=== PATIENT | female | born 1990 | race Hispanic/Latino ===

== ENCOUNTER 2016-11-24 13:11 | Emergency (ER) | payer OTHER ==
[2016-11-24 13:22] VITALS: BMI 38.6
[2016-11-24] MEDS ORDERED: Albuterol-Ipratrop 3 mg / 0.5 (3 ml) UD IH STA (13:53)
--- NOTE | 2016-11-24 15:09 | ED PDOC ---
Arrival/HPI - General Chief Complaint: ENT Problem Time Seen by Provider: 11/24/16 13:53 Historian: Patient - History of Present Illness Narrative History of Present Illness (Text): 11/24/16 15:19 Patient with past medical history of asthma, reports episode of dyspnea and wheezing earlier this morning prior to arrival, which has since resolved. Patient reports taking no medications prior to arrival, states that she recently moved to [place] from [place] and does not have a doctor at this time, hence why she is here in the emergency room because she has no asthma medications at home. Episode apparently precipitated by her seasonal allergies. Otherwise, (-) fever, (-) cough, (-) sputum production, (-) chest pain. Patient has no previous history of emergency department visits. Patient has no previous history of hospital admissions. Patient was never intubated in the past. PMD none Past Medical History - Provider Review Nursing Documentation Reviewed: Yes - Infectious Disease Hx of Infectious Diseases: None - Cardiac Hx Cardiac Disorders: No - Pulmonary Hx Respiratory Disorders: Yes Hx Asthma: Yes - Neurological Hx Neurological Disorder: No - HEENT Hx HEENT Disorder: No - Renal Hx Renal Disorder: No - Endocrine/Metabolic Hx Endocrine Disorders: No - Hematological/Oncological Hx Blood Disorders: No - Integumentary Hx Dermatological Disorder: No - Musculoskeletal/Rheumatological Hx Musculoskeletal Disorders: No - Gastrointestinal Hx Gastrointestinal Disorders: No - Genitourinary/Gynecological Hx Genitourinary Disorders: No - Psychiatric Hx Psychophysiologic Disorder: Yes Hx Depression: Yes Hx Substance Use: No - Anesthesia Hx Anesthesia: No Family/Social History - Physician Review Nursing Documentation Reviewed: Yes Family/Social History: No Known Family HX Smoking Status: Light Smoker < 10 Cigarettes Daily Hx Alcohol Use: No Hx Substance Use: No Allergies/Home Meds Allergies/Adverse Reactions: Allergies raw vegetable Allergy (Verified 11/24/16 13:22) ITCHING Review of Systems - Review of Systems Constitutional: Normal. absent: Fatigue, Weight Change, Fevers ENT: Normal, Rhinorrhea (Due to seasonal allergies), Sinus Congestion (Due to seasonal allergies) Respiratory: Normal, Wheezing (Related to her history of asthma). absent: SOB, Cough, Sputum Cardiovascular: Normal. absent: Chest Pain, Palpitations, Edema Musculoskeletal: Normal. absent: Arthralgias, Back Pain Skin: Normal. absent: Rash, Pruritis, Skin Lesions Physical Exam - Physical Exam Narrative Physical Exam (Text): 11/24/16 15:21 GENERAL APPEARANCE: Patient is awake, alert, oriented x 3, in no acute respiratory distress. Patient speaking in full sentences, breathing is easy and unlabored. SKIN: Warm, dry; (-) cyanosis. EYES: (-) conjunctival pallor. ENMT: Mucous membranes moist. Airway patent: (-) stridor. Pharynx: (-) swelling, (-) erythema. NECK: (-) tenderness, (-) stiffness, (-) lymphadenopathy. CHEST AND RESPIRATORY: (-) wheezing; (-) rales, (-) rhonchi, (-) rub; breath sounds equal bilaterally. HEART AND CARDIOVASCULAR: (-) irregularity; (-) murmur, (-) gallop. ABDOMEN AND GI: Soft; (-) tenderness. EXTREMITIES: (-) deformity, (-) edema. NEURO AND PSYCH: Mental status as above; (-) focal findings. Vital Signs Temp Pulse Resp BP Pulse Ox 11/24/16 13:26 97.7 F 75 18 109/76 97 Medical Decision Making ED Course and Treatment: 11/24/16 15:22 26 yo F with past medical history of asthma, presents to emergency room for concern for possible wheezing, she was wheezing earlier this morning. Patient given albuterol neb. On reevaluation, the patient reports improvement of her symptoms, denies any shortness of breath, dyspnea, chest pain, fever, cough. On exam, patient is resting comfortably in bed in no acute respiratory distress, no accessory muscle use, speaking in full sentences. Lungs are clear to auscultation with no wheezing, rhonchi, rales. Based on history and exam, plan will be for outpatient follow-up with the clinic. Prescription provided. Patient states she fully agrees with and understands discharge instructions. States that she agrees with the plan and disposition. Verbalized and repeated discharge instructions and plan. I have given the patient opportunity to ask any additional questions. Follow up with the clinic in 1-2 days without fail. Advised to take medication as prescribed. Return to the emergency room at any time for any new or worsening symptoms. - Medication Orders Current Medication Orders: Discontinued Medications Albuterol/Ipratropium (Duoneb 3 Mg/0.5 Mg (3 Ml) Ud) 3 ml IH STAT STA Stop: 11/24/16 13:54 Last Admin: 11/24/16 14:03 Dose: 3 ml Disposition/Present on Arrival - Present on Arrival Any Indicators Present on Arrival: No History of DVT/PE: No History of Uncontrolled Diabetes: No Urinary Catheter: No History of Decub. Ulcer: No History Surgical Site Infection Following: None - Disposition Have Diagnosis and Disposition been Completed?: Yes Diagnosis: Asthma Disposition: HOME/ ROUTINE Disposition Time: 14:30 Patient Plan: Discharge Patient Problems: Current Active Problems Problem Status Onset Asthma Acute Condition: GOOD Discharge Instructions (ExitCare): Asthma (ED) Print Language: YORUBA Additional Instructions: Thank you for letting us take care of you today. You were treated for asthma. The emergency medical care you received today was directed at your acute symptoms. If you were prescribed any medication, please fill it and take as directed. It may take several days for your symptoms to resolve. Return to the Emergency Department if your symptoms worsen, do not improve, or if you have any other problems. Please contact your doctor in 2 days for re-evaluation and follow up / or call one of the physicians/clinics you have been referred to that are listed on the Patient Visit Information form that is included in your discharge packet. Bring any paperwork you were given at discharge with you along with any medications you are taking to your follow up visit. Our treatment cannot replace ongoing medical care by a primary care provider (PCP) outside of the emergency department. Thank you for allowing the [facility] team to be part of your care today. Prescriptions: Albuterol HFA [Ventolin HFA 90 mcg/actuation (8 g)] 2 puff IH [id number] #1 puff Albuterol 0.083% [Albuterol Sulfate 3 Ml] 3 ml IH Q4 #100 neb Nebulizer [Aeroeclipse] 1 each MC PRN PRN #1 each PRN Reason: Shortness Of Breath [place] [facility] [place] [facility] [place] Follow up with primary Forms: WORK NOTE
[2016-11-24 15:25] VITALS: BP 121/82; PULSE 74; RESP 19; TEMP 97.5; O2SAT 100
== END 2016-11-24 15:26 | disposition home or self-care (01) ==
LOC: ED 13:11
DX: J45.909 Unspecified asthma, uncomplicated (principal); Z72.0 Tobacco use

== ENCOUNTER 2016-12-14 04:40 | Emergency (ER) | payer OTHER, MEDICAID ==
[2016-12-14 04:44] VITALS: BMI 39.8
--- NOTE | 2016-12-14 05:20 | ED PDOC ---
Arrival/HPI - General Chief Complaint: Psychiatric Evaluation Time Seen by Provider: 12/14/16 05:17 Historian: Patient - History of Present Illness Narrative History of Present Illness (Text): 12/14/16 05:17 Paulette Tobias is a 26 year old female, whose past medical history includes asthma, who presents to the Emergency department complaining of depression. Patient states she has been feeling depressed recently and notes she has been experiencing suicidal ideation but denies any plan. Patient denies any homicidal ideation, fever, chills, chest pain, shortness of breath, nausea, vomiting, diarrhea, urinary symptoms, back pain, neck pain, headache, dizziness , or any other complaints. Symptom Onset: Gradual Symptom Course: Unchanged Activities at Onset: Rest, Light Context: Home Past Medical History - Provider Review Nursing Documentation Reviewed: Yes - Infectious Disease Hx of Infectious Diseases: None - Cardiac Hx Cardiac Disorders: No - Pulmonary Hx Respiratory Disorders: Yes Hx Asthma: Yes - Neurological Hx Neurological Disorder: No - HEENT Hx HEENT Disorder: No - Renal Hx Renal Disorder: No - Endocrine/Metabolic Hx Endocrine Disorders: No - Hematological/Oncological Hx Blood Disorders: No - Integumentary Hx Dermatological Disorder: No - Musculoskeletal/Rheumatological Hx Musculoskeletal Disorders: No - Gastrointestinal Hx Gastrointestinal Disorders: No - Genitourinary/Gynecological Hx Genitourinary Disorders: No - Psychiatric Hx Psychophysiologic Disorder: Yes Hx Depression: Yes Hx Substance Use: No - Anesthesia Hx Anesthesia: No Hx Anesthesia Reactions: No Hx Malignant Hyperthermia: No Family/Social History - Physician Review Nursing Documentation Reviewed: Yes Family/Social History: No Known Family HX Smoking Status: Light Smoker < 10 Cigarettes Daily Hx Alcohol Use: No Hx Substance Use: No Allergies/Home Meds Allergies/Adverse Reactions: Allergies raw vegetable Allergy (Verified 12/14/16 04:49) ITCHING Home Medications: Home Meds Medication Instructions Recorded Confirmed No Known Home Med 12/14/16 12/14/16 Review of Systems - Physician Review All systems were reviewed & negative as marked: Yes - Review of Systems Constitutional: Normal. absent: Fevers Eyes: Normal ENT: Normal Respiratory: Normal. absent: SOB, Cough Cardiovascular: Normal. absent: Chest Pain Gastrointestinal: Normal. absent: Abdominal Pain, Diarrhea, Nausea, Vomiting Genitourinary Female: Normal. absent: Dysuria, Frequency, Hematuria, Urine Output Changes Musculoskeletal: Normal. absent: Back Pain, Neck Pain Skin: Normal. absent: Rash Neurological: Normal. absent: Headache, Dizziness Endocrine: Normal Hemo/Lymphatic: Normal Psychiatric: Depression, Suicidal Ideation Physical Exam Vital Signs Reviewed: Yes Vital Signs Temp Pulse Resp BP Pulse Ox 12/14/16 05:05 98.0 F 75 18 124/83 99 Temperature: Afebrile Blood Pressure: Normal Pulse: Regular Respiratory Rate: Normal Appearance: Positive for: Well-Appearing, Non-Toxic, Comfortable Pain Distress: None Mental Status: Positive for: Alert and Oriented X 3 - Systems Exam Head: Present: Atraumatic, Normocephalic Pupils: Present: PERRL Extroacular Muscles: Present: EOMI Conjunctiva: Present: Normal Mouth: Present: Moist Mucous Membranes Neck: Present: Normal Range of Motion Respiratory/Chest: Present: Clear to Auscultation, Good Air Exchange. No: Respiratory Distress, Accessory Muscle Use Cardiovascular: Present: Regular Rate and Rhythm, Normal S1, S2. No: Murmurs Abdomen: Present: Normal Bowel Sounds. No: Tenderness, Distention, Peritoneal Signs Back: Present: Normal Inspection Upper Extremity: Present: Normal Inspection. No: Cyanosis, Edema Lower Extremity: Present: Normal Inspection. No: Edema Neurological: Present: GCS=15, CN II-XII Intact, Speech Normal Skin: Present: Warm, Dry, Normal Color. No: Rashes Psychiatric: Present: Alert, Oriented x 3, Normal Insight, Normal Concentration. No: Normal Affect (Flat affect) Medical Decision Making ED Course and Treatment: 12/14/16 05:17 Impression: 26 year old female complaining of depression and suicidal ideation. Plan: -- EKG -- Chest X-ray -- Labs, alcohol level -- Urinalysis, urine drug screen -- Reassess and disposition Progress Notes: Reviewed EKG, NSR at 74 bpm. Sinus arrhythmia. No acute changes. 12/14/16 07:[address] Pitts, pending medical clearance PES evaluation, re- assessment, and final disposition. - RAD Interpretation Radiology Orders: 12/14/16 05:19 CHEST PORTABLE [RAD] Stat - EKG Interpretation Interpreted by ED Physician: Yes Type: 12 lead EKG - Scribe Statement The provider has reviewed the documentation as recorded by the Scribzoltan Rust All medical record entries made by the Scribe were at my direction and personally dictated by me. I have reviewed the chart and agree that the record accurately reflects my personal performance of the history, physical exam, medical decision making, and the department course for this patient. I have also personally directed, reviewed, and agree with the discharge instructions and disposition. Disposition/Present on Arrival - Present on Arrival Any Indicators Present on Arrival: No History of DVT/PE: No History of Uncontrolled Diabetes: No Urinary Catheter: No History of Decub. Ulcer: No History Surgical Site Infection Following: None - Disposition Have Diagnosis and Disposition been Completed?: No Diagnosis: Depression Disposition Time: 07:00 Condition: STABLE
[2016-12-14 06:19] LABS: ADD MANUAL DIFF? NO
[2016-12-14 06:38] LABS: BASO # 0.02 K/mm3 (0.0-2.0); BASO % 0.2 % (0.0-3.0); EOS # 0.2 (0.0-0.7); EOS % 2.2 % (1.5-5.0); GRAN % 76.1 % (50.0-68.0); HEMATOCRIT 38.4 % (36.0-48.0); LYMPH # 1.7 (1.2-3.4); LYMPH % 15.9 % (22.0-35.0); MEAN CELL VOLUME 95.3 fL (80.0-105.0); MEAN CORPUSCULAR HGB CONC 33.6 g/dl (31.0-37.0); MEAN PLATELET VOLUME 10.8 fl (7.0-11.0); MONO # 0.6 (0.1-0.6); MONO % 5.6 % (1.0-6.0); PLATELET COUNT 230 10^3/uL (120.0-450.0); RED CELL DISTRIBUTION WIDTH 12.6 % (11.5-14.5); WHITE BLOOD COUNT 10.9 10^3/ul (4.5-11.0)
[2016-12-14 06:39] LABS: URINE BILIRUBIN NEGATIVE (NEGATIVE); URINE BLOOD MODERATE (NEGATIVE); URINE GLUCOSE (UA) NEGATIVE (NEGATIVE); URINE KETONE NEGATIVE (NEGATIVE); URINE LEUKOCYTE ESTERASE SMALL Leu/uL (NEGATIVE); URINE PROTEIN 30 mg/dL (<30 mg/dL); URINE UROBILINOGEN 0.2 E.U./dL (<1 E.U./dL)
[2016-12-14 06:40] LABS: URINE APPEARANCE CLEAR (CLEAR)
[2016-12-14 06:42] LABS: ALB/GLOB RATIO 1.4 (1.1-1.8); ALKALINE PHOSPHATASE 73 U/L (38-133); ALT/SGPT 52 U/L (7-56); AST/SGOT 26 U/L (15-39); BILIRUBIN,TOTAL 0.4 mg/dL (0.2-1.3); BLOOD UREA NITROGEN 14 mg/dL (7-21); CALCIUM 9.2 mg/dL (8.4-10.5); CARBON DIOXIDE 25 mmol/L (21-33); CHLORIDE 106 mmol/L (98-107); GFR AFRICAN-AMERICAN > 60; GLUCOSE,RANDOM 93 mg/dL (70-110); POTASSIUM 3.6 mmol/L (3.6-5.0); SODIUM 138 mmol/L (132-148); TOTAL PROTEIN 6.7 g/dL (5.8-8.3)
[2016-12-14 06:44] LABS: URINE BACTERIA TRACE (NEG); URINE RBC 20 - 25 /hpf (0-2)
--- NOTE | 2016-12-14 07:20 | ED PDOC ---
Physical Exam Vital Signs Reviewed: Yes Vital Signs Temp Pulse Resp BP Pulse Ox 12/14/16 08:20 98 F 78 16 109/70 99 12/14/16 05:05 98.0 F 75 18 124/83 99 Temperature: Afebrile Blood Pressure: Normal Pulse: Regular Respiratory Rate: Normal Appearance: Positive for: Well-Appearing, Non-Toxic, Comfortable Pain Distress: None Mental Status: Positive for: Alert and Oriented X 3 Medical Decision Making ED Course and Treatment: 12/14/16 07:00 Case signed out to me from overnight by Dr. Casiano, pending medical clearance, PES evaluation and disposition. The patient is a 26 year old female who presented to the emergency department earlier this morning for evaluation of depression with suicidal ideation. On examination the patient is pleasant, cooperative, conversive, not agitated. On reevaluation, the patient is resting comfortably, awaiting PES evaluation. 12/14/16 08:20 Chest X-ray: As read by me, shows no active disease. Patient medical cleared for PES evaluation. PES paged. 12/14/16 10:13 Patient seen and evaluated by PES (Bridgett), who has evaluated patient, consulted with psychiatry, and based on current exam reports that she is cleared for discharge from mental health standpoint with mental health follow-up given. On re-evaluation by me, the patient denies any suicidal ideation at this time. Patient is pleasant, conversing, alert and oriented. Patient denies any chest pain, shortness of breath, headache or other complaints at this time. Patient's lungs are clear on auscultation. She states she is comfortable with the plan to be discharged home and she states she is in a safe living situation. Patient states she will follow up with mental health like directed. 12/14/16 15:17 - Lab Interpretations Lab Results: 12/14/16 06:17 12/14/16 06:17 Lab Results 12/14/16 06:17: Urine HCG, Qual Negative 12/14/16 06:17: Urine Opiates Screen Negative, Urine Methadone Screen Negative, Ur Barbiturates Screen Negative, Ur Phencyclidine Scrn Negative, Ur Amphetamines Screen Negative, U Benzodiazepines Scrn Negative, U Oth Cocaine Metabols Negative, U Cannabinoids Screen Positive H 12/14/16 06:17: Alcohol, Quantitative < 10 12/14/16 06:17: Salicylates < 1 L, Acetaminophen < 10.0 L 12/14/16 06:17: Sodium 138, Potassium 3.6, Chloride 106, Carbon Dioxide 25, Anion Gap 11, BUN 14, Creatinine 0.7, Est GFR ( Amer) > 60, Est GFR (Non- Af Amer) > 60, Random Glucose 93, Calcium 9.2, Total Bilirubin 0.4, AST 26, ALT 52, Alkaline Phosphatase 73, Total Protein 6.7, Albumin 3.8, Globulin 2.8, Albumin/Globulin Ratio 1.4 12/14/16 06:17: Urine Color yellow, Urine Appearance Clear, Urine pH 6.0, Ur Specific [place] 1.015, Urine Protein 30 H, Urine Glucose (UA) Negative, Urine Ketones Negative, Urine Blood Moderate H, Urine Nitrate Negative, Urine Bilirubin Negative, Urine Urobilinogen 0.2, Ur Leukocyte Esterase Small H, Urine RBC 20 - 25, Urine WBC 5 - 10, Ur Epithelial Cells 10 - 12, Urine Bacteria Trace 12/14/16 06:17: WBC 10.9, RBC 4.03, Hgb 12.9, Hct 38.4, MCV 95.3, MCH 32.0, MCHC 33.6, RDW 12.6, Plt Count 230, MPV 10.8, Gran % 76.1 H, Lymph % (Auto) 15.9 L, [place] % (Auto) 5.6, Eos % (Auto) 2.2, Baso % (Auto) 0.2, Gran # 8.30 H, Lymph # 1.7, [place] # 0.6, Eos # 0.2, Baso # 0.02 I have reviewed the lab results: Yes - RAD Interpretation Radiology Orders: 12/14/16 05:19 CHEST PORTABLE [RAD] Stat - Scribe Statement The provider has reviewed the documentation as recorded by the Scribzoltan Roca Provider Scribe Attestation: All medical record entries made by the Scribe were at my direction and personally dictated by me. I have reviewed the chart and agree that the record accurately reflects my personal performance of the history, physical exam, medical decision making, and the department course for this patient. I have also personally directed, reviewed, and agree with the discharge instructions and disposition. Disposition/Present on Arrival - Present on Arrival Any Indicators Present on Arrival: No History of DVT/PE: No History of Uncontrolled Diabetes: No Urinary Catheter: No History of Decub. Ulcer: No History Surgical Site Infection Following: None - Disposition Have Diagnosis and Disposition been Completed?: Yes Diagnosis: Depression Disposition: HOME/ ROUTINE Disposition Time: 10:13 Patient Plan: Discharge Condition: GOOD Discharge Instructions (ExitCare): Depression (ED) Additional Instructions: Follow-up as instructed by mental health practitioner. For any headaches, any chest pain, any shortness of breath, any abdominal pain, any rash, any numbness or weakness, any suicidal thoughts, any persistence or worsening of any symptoms, get rechecked. Follow-up with your doctors as directed.
[2016-12-14 09:11] VITALS: TEMP 98
--- NOTE | 2016-12-14 10:26 | RAD ---
HISTORY: Medical clearance. Portable study 06:55. COMPARISON: No prior. FINDINGS: LUNGS: No active pulmonary disease. PLEURA: No significant pleural effusion identified, no pneumothorax apparent. CARDIOVASCULAR: Normal. OSSEOUS STRUCTURES: No significant abnormalities. VISUALIZED UPPER ABDOMEN: Normal. OTHER FINDINGS: None. IMPRESSION: No active disease.
--- NOTE | 2016-12-14 10:40 | CARD ---
APPROVED REPORT EKG Measurement Heart [id number] <Conclusion> Normal sinus rhythm WNL
[2016-12-14 11:08] VITALS: BP 112/77; PULSE 80; RESP 18; O2SAT 98
== END 2016-12-14 11:10 | disposition home or self-care (01) ==
LOC: ED 04:40
DX: F32.9 Major depressive disorder, single episode, unspecified (principal)

== ENCOUNTER 2017-01-16 13:40 | Emergency (ER) | payer MEDICAID, OTHER ==
[2017-01-16 13:40] VITALS: BMI 39.8
--- NOTE | 2017-01-16 13:57 | ED PDOC ---
Arrival/HPI - General Chief Complaint: Psychiatric Evaluation Time Seen by Provider: 01/16/17 13:45 Historian: Patient - History of Present Illness Narrative History of Present Illness (Text): 01/16/17 13:56 26yo female with history of Depression biba for psych evaluation. Patient states she told her roommate that she "will take the easy way out" during an argument and the roommate called EMS. States she did not mean it, but only said it in anger. She denies HI, hallucination, drug use, somatic complaint. Past Medical History - Provider Review Nursing Documentation Reviewed: Yes - Infectious Disease Hx of Infectious Diseases: None - Cardiac Hx Cardiac Disorders: No Hx Hypertension: No - Pulmonary Hx Tuberculosis: No - Neurological HX Cerebrovascular Accident: No Hx Seizures: No - HEENT Hx HEENT Disorder: No - Renal Hx Renal Disorder: No - Endocrine/Metabolic Hx Endocrine Disorders: No - Hematological/Oncological Hx Cancer: No - Integumentary Hx Dermatological Disorder: No - Musculoskeletal/Rheumatological Hx Musculoskeletal Disorders: No - Gastrointestinal Hx Gastrointestinal Disorders: No - Genitourinary/Gynecological Hx Sexually Transmitted Diseases: No - Psychiatric Hx Psychophysiologic Disorder: Yes Hx Anxiety: Yes Hx Depression: Yes Hx Substance Use: No - Anesthesia Hx Anesthesia: No Family/Social History - Physician Review Nursing Documentation Reviewed: Yes Family/Social History: Unknown Family HX Smoking Status: Light Smoker < 10 Cigarettes Daily Hx Alcohol Use: No Hx Substance Use: No Allergies/Home Meds Allergies/Adverse Reactions: Allergies raw vegetable Allergy (Verified 01/16/17 13:50) ITCHING Home Medications: Home Meds Medication Instructions Recorded Confirmed Gabapentin [Neurontin] 100 mg PO BID 01/16/17 01/16/17 Sertraline [Zoloft] 50 mg PO DAILY 01/16/17 01/16/17 Review of Systems - Physician Review All systems were reviewed & negative as marked: Yes - Review of Systems Constitutional: Normal Eyes: Normal ENT: Normal Respiratory: Normal Cardiovascular: Normal Gastrointestinal: Normal Genitourinary Female: Normal Musculoskeletal: Normal Skin: Normal Neurological: Normal Endocrine: Normal Hemo/Lymphatic: Normal Psychiatric: Depression, Suicidal Ideation Physical Exam Vital Signs Reviewed: Yes Vital Signs Temp Pulse Resp BP Pulse Ox 01/16/17 17:03 87 20 128/77 100 01/16/17 13:58 98.9 F 99 H 20 130/79 98 Temperature: Afebrile Blood Pressure: Normal Pulse: Regular Respiratory Rate: Normal Appearance: Positive for: Well-Appearing, Non-Toxic, Comfortable Pain Distress: None Mental Status: Positive for: Alert and Oriented X 3 - Systems Exam Head: Present: Atraumatic, Normocephalic Pupils: Present: PERRL Extroacular Muscles: Present: EOMI Conjunctiva: Present: Normal Mouth: Present: Moist Mucous Membranes Neck: Present: Normal Range of Motion Respiratory/Chest: Present: Clear to Auscultation, Good Air Exchange. No: Respiratory Distress, Accessory Muscle Use Cardiovascular: Present: Regular Rate and Rhythm, Normal S1, S2. No: Murmurs Abdomen: Present: Normal Bowel Sounds. No: Tenderness, Distention, Peritoneal Signs Back: Present: Normal Inspection Upper Extremity: Present: Normal Inspection. No: Cyanosis, Edema Lower Extremity: Present: Normal Inspection. No: Edema Neurological: Present: GCS=15, CN II-XII Intact, Speech Normal Skin: Present: Warm, Dry, Normal Color. No: Rashes Psychiatric: Present: Alert, Oriented x 3, Normal Insight, Normal Concentration Medical Decision Making ED Course and Treatment: 01/16/17 19:24 Pt;s lab was unremarkable. High protein was noted in the UA. On further questioning pt notes that she has been on protein diet. States she takes protein shakes 3times a day. this could be the cause of the high protein in the UA. She was advised to stop the protein diet and f/u with her PMD. She was medically cleared for psych evaluation and was seen by PES tsering Lov[place], jamilah DC with the psychiatrist and offered patient admission. States that pt declined admission and signed out AMA. - Lab Interpretations Lab Results: 01/16/17 14:21 01/16/17 14:21 Lab Results 01/16/17 14:21: Alcohol, Quantitative < 10 01/16/17 14:21: Salicylates < 1 L, Acetaminophen < 10.0 L 01/16/17 14:21: Sodium 139, Potassium 3.9, Chloride 105, Carbon Dioxide 23, Anion Gap 15, BUN 13, Creatinine 0.6, Est GFR ( Amer) > 60, Est GFR (Non- Af Amer) > 60, Random Glucose 96, Calcium 9.5, Total Bilirubin 1.1, AST 33, ALT 59 H, Alkaline Phosphatase 75, Total Protein 7.5, Albumin 4.4, Globulin 3.1, Albumin/Globulin Ratio 1.4 01/16/17 14:21: WBC 9.7, RBC 4.26, Hgb 13.7, Hct 40.5, MCV 95.1, MCH 32.2, MCHC 33.8, RDW 12.8, Plt Count 280, MPV 10.4, Gran % 75.1 H, Lymph % (Auto) 15.2 L, [place] % (Auto) 6.7 H, Eos % (Auto) 2.7, Baso % (Auto) 0.3, Gran # 7.29 H, Lymph # 1.5, [place] # 0.7 H, Eos # 0.3, Baso # 0.03 01/16/17 14:20: Urine Opiates Screen Negative, Urine Methadone Screen Negative, Ur Barbiturates Screen Negative, Ur Phencyclidine Scrn Negative, Ur Amphetamines Screen Negative, U Benzodiazepines Scrn Negative, U Oth Cocaine Metabols Negative, U Cannabinoids Screen Positive H 01/16/17 14:20: Urine Color Yellow, Urine Appearance Sl cloudy, Urine pH 6.0, Ur Specific [place] >= 1.030, Urine Protein >=300 H, Urine Glucose (UA) Negative , Urine Ketones Trace H, Urine Blood Moderate H, Urine Nitrate Negative, Urine Bilirubin Small H, Urine Urobilinogen 1.0 H, Ur Leukocyte Esterase Trace H, Urine RBC 0 - 2, Urine WBC 10 - 15, Ur Epithelial Cells 4 - 5, Urine Bacteria Mod, Coarse Granular Casts Trace H Disposition/Present on Arrival - Present on Arrival Any Indicators Present on Arrival: No History of DVT/PE: No History of Uncontrolled Diabetes: No Urinary Catheter: No History of Decub. Ulcer: No History Surgical Site Infection Following: None - Disposition Have Diagnosis and Disposition been Completed?: Yes Diagnosis: Depression Disposition: AGAINST MEDICAL ADVICE Disposition Time: 16:00 Condition: FAIR
[2017-01-16 14:01] VITALS: RESP 20; TEMP 98.9
[2017-01-16 14:47] LABS: URINE APPEARANCE SL CLOUDY (CLEAR); URINE BILIRUBIN SMALL (NEGATIVE); URINE BLOOD MODERATE (NEGATIVE); URINE COLOR YELLOW (YELLOW); URINE GLUCOSE (UA) NEGATIVE (NEGATIVE); URINE LEUKOCYTE ESTERASE TRACE Leu/uL (NEGATIVE); URINE NITRATE NEGATIVE (NEGATIVE); URINE PROTEIN >=300 mg/dL (<30 mg/dL)
[2017-01-16 14:53] LABS: BASO # 0.03 K/mm3 (0.0-2.0); BASO % 0.3 % (0.0-3.0); EOS # 0.3 (0.0-0.7); EOS % 2.7 % (1.5-5.0); GRAN # 7.29 (1.4-6.5); GRAN % 75.1 % (50.0-68.0); HEMOGLOBIN 13.7 gm/dL (12.0-16.0); LYMPH # 1.5 (1.2-3.4); LYMPH % 15.2 % (22.0-35.0); MEAN CELL VOLUME 95.1 fL (80.0-105.0); MEAN CORPUSCULAR HEMOGLOBIN 32.2 pg (25.0-35.0); MEAN CORPUSCULAR HGB CONC 33.8 g/dl (31.0-37.0); MEAN PLATELET VOLUME 10.4 fl (7.0-11.0); MONO # 0.7 (0.1-0.6); MONO % 6.7 % (1.0-6.0); PLATELET COUNT 280 10^3/uL (120.0-450.0); RBC 4.26 10^6/uL (3.5-6.1); RED CELL DISTRIBUTION WIDTH 12.8 % (11.5-14.5); WHITE BLOOD COUNT 9.7 10^3/ul (4.5-11.0)
[2017-01-16 14:58] LABS: URINE BACTERIA MOD (NEG); URINE COARSE GRANULAR CAST TRACE /hpf (0-2); URINE RBC 0 - 2 /hpf (0-2)
[2017-01-16 15:04] LABS: SALICYLATE < 1 mg/dL (2.0-20.0)
[2017-01-16 15:05] LABS: ACETAMINOPHEN < 10.0 ug/ml (10.0-20.0); ALB/GLOB RATIO 1.4 (1.1-1.8); ALBUMIN 4.4 g/dL (3.0-4.8); ALT/SGPT 59 U/L (7-56); AST/SGOT 33 U/L (15-39); BLOOD UREA NITROGEN 13 mg/dL (7-21); CALCIUM 9.5 mg/dL (8.4-10.5); GFR AFRICAN-AMERICAN > 60; GFR NON-AFRICAN AMERICAN > 60
[2017-01-16 15:08] LABS: BARBITURATES, UR NEGATIVE (NEGATIVE); BENZODIAZEPINES, UR NEGATIVE (NEGATIVE); OPIATES, UR NEGATIVE (NEGATIVE); PHENCYCLIDINE, UR NEGATIVE (NEGATIVE)
[2017-01-16 17:04] VITALS: BP 128/77; PULSE 87; O2SAT 100
--- NOTE | 2017-01-17 09:27 | CARD ---
APPROVED REPORT EKG Measurement Heart [id number] <Conclusion> Normal sinus rhythm Normal ECG
== END 2017-01-16 16:53 | disposition left against medical advice (07) ==
LOC: ED 13:40
DX: F32.9 Major depressive disorder, single episode, unspecified (principal); F41.9 Anxiety disorder, unspecified